=== PATIENT | female | born 1990 | race Caucasian/White ===

== ENCOUNTER 2017-10-06 09:33 | Emergency (ER) | payer BC ==
[~2017-10-06] VITALS: Ht 162.6 cm; Wt 72.6 kg
[~2017-10-06 09:33] MED LIST: APAP500 PO; CIPROFLOXACIN500 M1 PO; COLACE 100 MG100 MG PO; ELIMITE60 GM TP; IBUPROFEN 800800 M1 PO; LANOLIN56 GM TOP; LORTAB 10-3251 EACH PO; MACROBID 100 M100 M1 PO; PHENERGAN 25 MG25 M1 PO; PRENATABS FA T1 EACH PO; TRAMADOL 50 MG50 MG PO; TRINATE TABLET1 TAB PO; ZOFRAN ODT4 MG PO
[2017-10-06 10:29] LABS: URINE BILIRUBIN NEGATIVE (Negative); URINE BLOOD NEGATIVE (Negative); URINE CLARITY CLEAR; URINE COLOR YELLOW; URINE GLUCOSE-RANDOM* NEGATIVE (Negative); URINE KETONES NEGATIVE (Negative); URINE LEUKOCYTES-REFLEX NEGATIVE (Negative); URINE NITRITE-REFLEX NEGATIVE (Negative); URINE PROTEIN (DIPSTICK) NEGATIVE (Negative); URINE UROBILINOGEN 0.2 E.U./dl (0.2-1.0)
[2017-10-06 11:12] LABS: ABSOLUTE NEUTROPHILS 6.9 thou/uL (1.4-8.2); BASOPHILS 0.4 % (0.0-2.0); EOSINOPHILS 0.1 % (0.0-3.0); HEMATOCRIT 39.4 % (37.0-47.0); HEMOGLOBIN 14.1 gm/dL (12.0-15.0); LYMPHOCYTES 22.1 % (24.0-44.0); MCH 32.4 pg (26.0-34.0); MCHC 35.6 g/dL (28.0-37.0); MONOCYTES 5.2 % (1.0-8.0); PLATELET COUNT 175 thou/uL (150-400); POLYS 72.2 % (36.0-66.0); RBC 4.34 mil/uL (4.20-5.00); RDW 12.8 % (10.5-14.5); WBC 9.6 thou/uL (4.0-11.0)
[2017-10-06 11:28] LABS: CALCIUM 8.7 mg/dL (8.5-10.1); CREATININE 0.6 mg/dL (0.6-1.0); POTASSIUM 3.6 mmol/L (3.5-5.1)
[2017-10-06 13:03] VITALS: BP 121/74
== END 2017-10-06 13:05 | disposition home or self-care (01) ==
LOC: ER 09:33
PROVIDERS: Emergency Medicine; Nurse Practitioner Family
DX: O26.891 Other specified pregnancy related conditions, first trimester (principal); Z3A.13 13 weeks gestation of pregnancy; R10.2 Pelvic and perineal pain; F17.210 Nicotine dependence, cigarettes, uncomplicated

== ENCOUNTER 2021-01-11 12:10 | Emergency (ER) | payer OTHER ==
[~2021-01-11] VITALS: Ht 162.6 cm; Wt 77.1 kg
[2021-01-11 12:42] VITALS: BP 121/76
[2021-01-11] MEDS ORDERED: PREDNISONE 20 M20 M1 PO (13:17)
== END 2021-01-11 13:58 | disposition home or self-care (01) ==
LOC: ER 12:10
PROVIDERS: Nurse Practitioner
DX: J20.9 Acute bronchitis, unspecified (principal); Z20.822 Contact with and (suspected) exposure to COVID-19; J45.909 Unspecified asthma, uncomplicated; F17.210 Nicotine dependence, cigarettes, uncomplicated; Z98.890 Other specified postprocedural states; Z79.899 Other long term (current) drug therapy

== ENCOUNTER 2021-03-12 14:03 | Emergency (ER) | payer OTHER ==
[~2021-03-12] VITALS: Ht 160 cm; Wt 77.1 kg
[~2021-03-12 14:03] MED LIST changes: +PREDNISONE 20 M20 M1 PO
[2021-03-12] MEDS ORDERED: AUGMENTIN 875-1 EACH PO (15:41)
[2021-03-12] MEDS ORDERED: NORCO5 PO (15:41)
[2021-03-12 15:52] VITALS: BP 147/82
== END 2021-03-12 15:53 | disposition home or self-care (01) ==
LOC: ER 14:03
DX: K08.89 Other specified disorders of teeth and supporting structures (principal); F17.210 Nicotine dependence, cigarettes, uncomplicated; F12.90 Cannabis use, unspecified, uncomplicated; Z98.890 Other specified postprocedural states